=== PATIENT | male | born 1995 | race Caucasian/White ===

== ENCOUNTER 2017-12-13 04:12 | Emergency (ER) | payer SELFPAY ==
[2017-12-13 04:17] VITALS: BP 134/86; PULSE 104; RESP 20; TEMP 98.7
--- NOTE | 2017-12-13 04:20 | ED ---
General Adult HPI - General Stated complaint: [facility] clearance Time Seen by Provider: 12/13/17 04:17 Source: RN notes reviewed, old records reviewed - History of Present Illness Initial comments: This is a 22-year-old male the ER for evaluation regarding for evaluation regarding penitentiary clearance secondary to laceration on patient's leg. Unknown history of outpatient obtained laceration he states drinks skateboarding incident night before. Patient arrested underlying circumstance. Patient laceration greater than 24 hours old. No significant bleeding currently Review of Systems ROS Statement: Those systems with pertinent positive or pertinent negative responses have been documented in the HPI. ROS Other: All systems not noted in ROS Statement are negative. General Exam General appearance: alert, in no apparent distress Head exam: Present: atraumatic, normocephalic, normal inspection Eye exam: Present: normal appearance, PERRL, EOMI. Absent: scleral icterus, conjunctival injection, periorbital swelling ENT exam: Present: normal exam, mucous membranes moist Neck exam: Present: normal inspection. Absent: tenderness, meningismus, lymphadenopathy Respiratory exam: Present: normal lung sounds bilaterally. Absent: respiratory distress, wheezes, rales, rhonchi, stridor Cardiovascular Exam: Present: regular rate, normal rhythm, normal heart sounds. Absent: systolic murmur, diastolic murmur, rubs, gallop, clicks GI/Abdominal exam: Present: soft, normal bowel sounds. Absent: distended, tenderness, guarding, rebound, rigid Extremities exam: Present: normal inspection, full ROM, normal capillary refill , other (Left knee laceration 3 cm). Absent: tenderness, pedal edema, joint swelling, calf tenderness Back exam: Present: normal inspection Neurological exam: Present: alert, oriented X3, CN II-XII intact Psychiatric exam: Present: normal affect, normal mood Skin exam: Present: warm, dry, intact, normal color. Absent: rash Course - Reevaluation(s) Reevaluation #1: 12/13/17 04:19 Laceration greater than 24 hours old, will heal by secondary intent Medical Decision Making - Medical Decision Making 22 male the ER for evaluation of left leg laceration, laceration greater than 24 hours no need for repair. No significant bleeding no gaping. Patient can be discharged for incarceration Disposition Clinical Impression: Laceration of left leg, Medical clearance for incarceration Disposition: HOME SELF-CARE Condition: Good Instructions: Laceration (ED) Referrals: None,Stated [Primary Care Provider] - 1-2 days
== END 2017-12-13 04:54 | disposition home or self-care (01) ==
LOC: EC 04:12
DX: S81.812A Laceration without foreign body, left lower leg, initial encounter (principal); Z02.89 Encounter for other administrative examinations; X58.XXXA Exposure to other specified factors, initial encounter; Y93.51 Activity, roller skating (inline) and skateboarding
CPT/HCPCS: 99283